=== PATIENT | male | born 1950 | race African-American/Black ===

== ENCOUNTER 2023-12-27 04:26 | Day surgery (SDC) | payer OTHER ==
[2023-12-26 09:42] VITALS: BMI 34.2
[2023-12-27] MEDS ORDERED: LIDOCAINE HCL/PF 2% SDV 5ML VIAL ONE (13:19)
[2023-12-27] MEDS ORDERED: PROPOFOL 20 ML ONE (13:19)
[2023-12-27] MEDS ORDERED: MIDAZOLAM HCL 2 MG/2 ML SINGLE DOSE VIAL ONE (13:20)
[2023-12-27] MEDS ORDERED: ceFAZolin SODIUM 1 GM VIAL ONE (14:19)
[2023-12-27] MEDS ORDERED: KETOROLAC TROMETHAMINE 30 MG/1 ML VIAL ONE (14:19)
[2023-12-27] MEDS ORDERED: DEXAMETHASONE SOD PHOSPHATE 4 MG/1 ML VIAL ONE (14:19)
[2023-12-27] MEDS ORDERED: ONDANSETRON 4 MG/2 ML VIAL ONE (14:19)
[2023-12-27] MEDS: ceFAZolin SODIUM 1 GM VIAL IVPB ONE (14:24)
[2023-12-27] MEDS ORDERED: oxyCODONE HCL 5 MG TABLET PO PRN ×2 (14:31)
[2023-12-27] MEDS ORDERED: PROMETHAZINE HCL 25 MG/1 ML VIAL IVPB PRN (14:31)
[2023-12-27] MEDS ORDERED: ONDANSETRON 4 MG/2 ML VIAL IVPUSH PRN (14:31)
[2023-12-27] MEDS ORDERED: ACETAMINOPHEN INJECTION 100 ML ONE (14:57)
[2023-12-27] MEDS: ACETAMINOPHEN 1000 MG/100 ML BAG IVPB ONE (15:05)
[2023-12-27] MEDS: LACTATED RINGERS SOLUTION 1,000 ML IV SCH (15:08)
[2023-12-27 15:26] VITALS: RESP 18
[2023-12-27 17:01] VITALS: BP 149/76; PULSE 59; TEMP 96.9
== END 2023-12-27 16:54 | disposition home or self-care (01) ==
LOC: JASU-SURG 04:26
PROVIDERS: ATTEND Urology
PROC: 0T7D7ZZ Dilation of Urethra, Via Natural or Artificial Opening (ICD-10-PCS; principal; 2023-12-27 14:00)
DX: N35.919 Unspecified urethral stricture, male, unspecified site (principal)
CPT/HCPCS: 94760; J0131